=== PATIENT | male | born 2000 | race Caucasian/White ===

== ENCOUNTER 2022-03-19 13:01 | Emergency (ER) | payer OTHER ==
[~2022-03-19] VITALS: Ht 180.3 cm; Wt 63.5 kg
--- NOTE | 2022-03-19 13:30 | NUR ---
Patient came in to the er c/o lac on the right hand sustained when a rebar fell on his hand. Kept comfortable, will continue to monitor accordingly.
[2022-03-19] MEDS ORDERED: LIDOCAINE 1% INJ 50 ML MDV IJ ONE (14:05)
[2022-03-19] MEDS ORDERED: BACI/NEOM/POLY B OINT PKT 1 UDPKT PACKET TP ONE (14:30)
[2022-03-19] MEDS ORDERED: TDAP [DIPH/PERTUSSIS/TET] 0.5 ML VIAL IM ONE ×2 (14:30→14:31)
[2022-03-19] MEDS ORDERED: LIDOCAINE HCL/PF 1% 30 ML VIAL TP ONE (14:30)
--- NOTE | 2022-03-19 15:22 | NUR ---
Patient discharged to home in stable condition. Written and verbal after care instructions given. Patient verbalizes understanding of instruction.
[2022-03-19 15:23] VITALS: BP 118/77
== END 2022-03-19 15:23 | disposition home or self-care (01) ==
LOC: ER 13:11
DX: S61.411A Laceration without foreign body of right hand, initial encounter (principal); W20.8XXA Other cause of strike by thrown, projected or falling object, initial encounter; Y93.89 Activity, other specified; Y92.89 Other specified places as the place of occurrence of the external cause; Y99.0 Civilian activity done for income or pay
CPT/HCPCS: 99283; 12002; 90471; 90715; J3490 ×2; A6403 ×2